=== PATIENT | female | born 1955 | race Caucasian/White ===

== ENCOUNTER 2016-04-30 09:08 | Emergency (ER) | payer OTHER ==
[~2016-04-30] VITALS: Ht 147.3 cm; Wt 113.4 kg
[~2016-04-30 09:08] MED LIST: ASPIR 8181 MG PO; CALCIUM + D 6001 TAB PO; CYMBALTA 60 MG60 MG PO; HCTZ/LISINOPRIL1 TA2 PO; IBUPROFEN800 M1 PO; KEFLEX500 M1 PO; KEFLEX500 MG PO; LIDODERM 5% PAT1 PAT TOP; LOPID 600 MG T600 MG PO; LOVAZA1 GM PO; METFORMIN1000 MG PO; MULTIVITAMIN1 TAB PO; NATURAL IRON65 MG PO; OMEPRAZOLE D/R20 MG PO; ROBITUSSIN W/CO10 ML PO; TRAZODONE HCL100 MG PO; VERAPAMIL HCL120 M2 PO; VITAMIN B6100 MG PO; VITAMIN D1000 IU PO; ZITHROMAX Z PA250 MG PO
--- NOTE | 2016-04-30 09:09 | ED DYSPNEA/ASTHMA COMPLAINT ---
History of Present Illness General Chief Complaint: Dyspnea (COPD, CHF, Other) Stated Complaint: BIBS DIFFICULTY BREATHING Source: patient, old records, EMS Exam Limitations: no limitations Vital Signs & Intake/Output Vital Signs & Intake/Output Vital Signs Date Time Temp Pulse Resp B/P Pulse O2 O2 Flow FiO2 Ox Delivery Rate 04/30 921 99 Room Air 04/30 920 98.6 78 18 156/79 100 Room Air Allergies Coded Allergies: Penicillins (Intermediate, RASH 08/27/15) prednisone (Intermediate, STOMACH ULCER BLEEDING 08/27/15) Reconcile Medications Aspirin (Ecotrin) 81 MG TABLET.DR 1 TAB PO DAILY HEART HEALTH (Reported) Calcium/Vitamin D (Calcium + D) 600 MG/200 IU TAB 1 TAB PO DAILY SUPPLEMENT ( Reported) Cephalexin (Keflex) 500 MG CAPSULE 1 CAP PO TID PRN cellulitis Cephalexin (Keflex) 500 MG CAPSULE 1 TAB PO 4 TIMES/DAY INFECTION Cholecalciferol (Vitamin D3) 1,000 UNIT TABLET 2 TAB PO DAILY SUPPLEMENT ( Reported) Duloxetine Hydrochloride (Cymbalta) 30 MG CAPSULE.DR 1 CAP PO DAILY MENTAL HEALTH (Reported) FERROUS SULFATE (IRON) 325 MG (65 MG IRON) TABLET 1 TAB PO DAILY SUPPLEMENT ( Reported) Gemfibrozil (Lopid 600 MG Tab) 600 MG TABLET 1 TAB PO BID CHOLESTEROL ( Reported) Hydrochlorothiazide/Lisinopr (Hctz/Lisinopril 25 MG-20 MG) 1 TAB TAB 1 TAB PO DAILY BP (Reported) Ibuprofen 800 MG TABLET 1 TAB PO TID PRN PAIN Lidocaine HCl (Lidoderm Patch) 5 % PAT 1 PAT TOP PRN PAIN (Reported) may wear up to 12 hours METFORMIN HCL (Metformin) 1,000 MG TABLET 1 TAB PO BID DIABETES (Reported) Multivitamin (Multiple Vitamins) 1 EACH TABLET 1 TAB PO DAILY SUPPLEMENT ( Reported) Oeqwz-0-Wvjd Ethyl Esters (Lovaza) 1 GRAM CAPSULE 2 CAP PO BID TRIGLYCERIDES (Reported) Omeprazole 20 MG CAPSULE.DR 1 CAP PO DAILY AC GI (Reported) Pyridoxine (Vitamin B6) 100 MG TAB 1 TAB PO DAILY SUPPLEMENT (Reported) TRAZODONE HCL (Trazodone HCl) 100 MG TABLET 2 TAB PO QHS SLEEP (Reported) VERAPAMIL HCL (Verapamil ER) 120 MG TABLET.ER 1 TAB PO DAILY BP (Reported) Triage Nurses Notes Reviewed? yes Past History Travel History Traveled to [place] past 21 day No Medical History Neurological: NONE EENT: NONE Cardiovascular: HTN, HYPERCHOLESTEROLEMIA Respiratory: NONE Gastrointestinal: NONE Hepatic: NONE Renal: NONE Musculoskeletal: NONE Psychiatric: NONE Endocrine: NIDDM Blood Disorders: NONE Cancer(s): NONE SHARED SERVICES REPRESENTATIVE/Reproductive: NONE Tetanus Vaccine: 12/03/13 Surgical History Surgical History: none Psychosocial History Who do you live with Family Services at Home NONE What is your primary language Barbadian Progress Plan of Care: Orders Procedure Date/time Status EKG 04/30 908 Active Initial ED EKG: NSR Prior EKG: unchanged Departure Departure Condition: Stable Referrals: VU REDDY MD (PCP/Family) Departure Forms: Customer Survey General Discharge Information
--- NOTE | 2016-04-30 09:30 | ED THROAT/DENTAL COMPLAINT ---
History of Present Illness General Chief Complaint: Dyspnea (COPD, CHF, Other) Stated Complaint: BIBS DIFFICULTY BREATHING Source: patient, old records, EMS Exam Limitations: no limitations Vital Signs & Intake/Output Vital Signs & Intake/Output Vital Signs Date Time Temp Pulse Resp B/P Pulse O2 O2 Flow FiO2 Ox Delivery Rate 04/30 921 99 Room Air 04/30 920 98.6 78 18 156/79 100 Room Air Allergies Coded Allergies: Penicillins (Intermediate, RASH 08/27/15) prednisone (Intermediate, STOMACH ULCER BLEEDING 08/27/15) Reconcile Medications Aspirin (Ecotrin) 81 MG TABLET.DR 1 TAB PO DAILY HEART HEALTH (Reported) Calcium/Vitamin D (Calcium + D) 600 MG/200 IU TAB 1 TAB PO DAILY SUPPLEMENT ( Reported) Cephalexin (Keflex) 500 MG CAPSULE 1 CAP PO TID PRN cellulitis Cephalexin (Keflex) 500 MG CAPSULE 1 TAB PO 4 TIMES/DAY INFECTION Cholecalciferol (Vitamin D3) 1,000 UNIT TABLET 2 TAB PO DAILY SUPPLEMENT ( Reported) Duloxetine Hydrochloride (Cymbalta) 30 MG CAPSULE.DR 1 CAP PO DAILY MENTAL HEALTH (Reported) FERROUS SULFATE (IRON) 325 MG (65 MG IRON) TABLET 1 TAB PO DAILY SUPPLEMENT ( Reported) Gemfibrozil (Lopid 600 MG Tab) 600 MG TABLET 1 TAB PO BID CHOLESTEROL ( Reported) Hydrochlorothiazide/Lisinopr (Hctz/Lisinopril 25 MG-20 MG) 1 TAB TAB 1 TAB PO DAILY BP (Reported) Ibuprofen 800 MG TABLET 1 TAB PO TID PRN PAIN Lidocaine HCl (Lidoderm Patch) 5 % PAT 1 PAT TOP PRN PAIN (Reported) may wear up to 12 hours METFORMIN HCL (Metformin) 1,000 MG TABLET 1 TAB PO BID DIABETES (Reported) Multivitamin (Multiple Vitamins) 1 EACH TABLET 1 TAB PO DAILY SUPPLEMENT ( Reported) Muqsr-9-Ffgj Ethyl Esters (Lovaza) 1 GRAM CAPSULE 2 CAP PO BID TRIGLYCERIDES (Reported) Omeprazole 20 MG CAPSULE.DR 1 CAP PO DAILY AC GI (Reported) Pyridoxine (Vitamin B6) 100 MG TAB 1 TAB PO DAILY SUPPLEMENT (Reported) TRAZODONE HCL (Trazodone HCl) 100 MG TABLET 2 TAB PO QHS SLEEP (Reported) VERAPAMIL HCL (Verapamil ER) 120 MG TABLET.ER 1 TAB PO DAILY BP (Reported) Triage Note: PT BIBA STATING "THE RIGHT SIDE OF MY THROAT IS CLOGGED, NORMALLY I COUGH UP PHLEGM IN THE MORNING BUT THIS MORNING IT WAS HARD AND I DIDN'T WANT TO WAKE UP MY SON TO TAKE ME HERE BECAUSE HE WAS BUSY LAST NIGHT" NO S/S OF STRIDOR, ALLERGIC RXN, LUNGS CTA, NO NAUSEA/VOMITING. Triage Nurses Notes Reviewed? yes Onset: Abrupt Duration: hour(s): (1) Timing: single episode today Injury Environment: home Severity: mild No Modifying Factors: none Associated Symptoms: feels like something is stick in her throat HPI: 61 year old female BIBA from home for chief complaint of feeling like something is stuck on the right side of her throat which started this morning. Patient started on lomotil on sunday and took 3 doses today. Patient unsure if this is contributing to her symptoms. Patient has no difficulty swallowing, no shortness of breath. Past History Travel History Traveled to [place] past 21 day No Medical History Any Pertinent Medical History? see below for history Neurological: neuropathy EENT: NONE Cardiovascular: HTN, HYPERCHOLESTEROLEMIA Respiratory: NONE Gastrointestinal: peptic ulcer disease Hepatic: NONE Renal: NONE Musculoskeletal: NONE Psychiatric: NONE Endocrine: NIDDM Blood Disorders: NONE Cancer(s): NONE WELLNESS PROGRAM MANAGER/Reproductive: NONE Tetanus Vaccine: 12/03/13 Surgical History Surgical History: none Psychosocial History Who do you live with Family Services at Home NONE What is your primary language Yi Tobacco Use: Never used ETOH Use: denies use Illicit Drug Use: denies illicit drug use Family History Hx Contributory? No Review of Systems Review of Systems Constitutional: Denies: chills, fever. EENTM: Reports: see HPI (THROAT DISCOMFORT). Denies: throat swelling, mouth pain, tooth pain. Respiratory: Denies: cough, short of breath, sputum production. Cardiovascular: Denies: chest pain, palpitations. GI: Denies: abdominal pain, nausea, vomiting. Genitourinary: Reports: no symptoms. Musculoskeletal: Denies: back pain. Skin: Denies: rash. Neurological/Psychological: Denies: anxiety. Hematologic/Endocrine: Denies: bruising, bleeding, polyuria, polydipsia. Immunologic/Allergic: Denies: splenectomy. All Other Systems: Reviewed and Negative Physical Exam Physical Exam General Appearance: well developed/nourished, alert, awake, mild distress, obese Head: atraumatic, normal appearance Eyes: Bilateral: normal appearance, PERRL, EOMI. Ears: Bilateral: canal normal, Tympanic normal. Nose: normal inspection Mouth/Throat: uvula swelling Neck: normal inspection, supple, full range of motion, NO STRIDOR Cardiovascular/Respiratory: normal breath sounds, normal peripheral pulses Gastrointestinal: SOFT NONTENDER Back: normal inspection, normal range of motion Neurologic/Psych: no motor/sensory deficits, awake, alert, oriented x 3 Skin: intact, normal color, warm/dry Core Measures ACS in differential dx? No Severe Sepsis Present: No Septic Shock Present: No Progress Differential Diagnosis: UVULITIS, PHARYNGITIS, ALLERGIC REACTION, ANGIOEDEMA Plan of Care: Orders Procedure Date/time Status THROAT CULTURE W/QUICK STREP 04/30 952 Active EKG 04/30 0909 Active Patient reported some symptom improvement before getting to the ER. Decadron, benadryl ordered. quick strep ordered. Still reporting improved symptoms after oral meds. Uvula appears to be somewhat less swollen. No stridor. Discussed possible reaction to lisinopril although I feel this is less likely. If she has any worsening swelling or sympotms after taking her lisinopril again she will immediatley stop it and return to the hospital. (BLAKE MINOR,LISY) Departure Departure Time of Disposition: 1124 Disposition: HOME OR SELF CARE Condition: Stable Clinical Impression Primary Impression: Uvulitis Referrals: MAUREEN MINOR,VU Hale (PCP/Family) Additional Instructions: Take benadryl as needed for your symptoms. Follow up with your doctor in the office. If you take your blood pressure medication and the swelling gets worse then immediately stop the lisinopril and come back to the hospital. Departure Forms: Customer Survey General Discharge Information
[2016-04-30 11:24] VITALS: BP 134/85
== END 2016-04-30 11:26 ==
LOC: ERH 09:08
DX: K12.2 Cellulitis and abscess of mouth (principal)
CPT/HCPCS: 93005; 93010; 96372